=== PATIENT | female | born 1970 | race Caucasian/White ===

== ENCOUNTER → 2017-04-05 | Outpatient (CLI) | payer OTHER | END | disposition home or self-care (01) | LOC: US 12:30 | DX: D25.2 Subserosal leiomyoma of uterus (principal) ==

== ENCOUNTER → 2017-04-19 | Outpatient (CLI) | payer OTHER | END | disposition home or self-care (01) | LOC: MAMMO 04-05 12:33 | DX: Z12.31 Encounter for screening mammogram for malignant neoplasm of breast (principal) ==

== ENCOUNTER 2019-01-01 08:38 | Emergency (ER) | payer OTHER ==
[~2019-01-01] VITALS: Ht 160 cm; Wt 68.0 kg
--- NOTE | ~2019-01-01 | EKG ---
[place], [place] ELECTROCARDIOGRAM REPORT NAME: VILMA MORENO UNIT #: [id number] ROOM: DOCTOR: EPIPHANY DRAFT REPORT BIRTHDATE: [birth year] [facility] Test Date: 2019-01-01 Test Time: 09:06:04 Pat Name: VILMA MORENO Department: Room: Gender: F [employer]: : 1970 Requested By: MADONNA EDWARDS Order Number: [id number] Reading MD: Christ Grimes MD Measurements Intervals [place] Rate: 75 P: 71 VA: 130 QRS: 67 QRSD: 83 T: 20 QT: 393 QTc: 439 Interpretive Statements Sinus rhythm Nonspecific ST T changes Electronically Signed On 01-03-2019 6:22:10 PDT by Christ Grimes MD CM:EKGRPT:ELECTROCARDIOGRAM REPORT [id number] MADONNA CARLOS DRAFT REPORT MADONNA EDWARDS M.D.
[2019-01-01 09:32] LABS: BASO % 0.2 % (0.0-1.0); EOS % 0.3 % (1.0-4.0); HEMATOCRIT 48.2 % (37.0-47.0); HEMOGLOBIN 16.2 g/dl (12.0-16.0); LYMPH # 0.5 10*3/uL (1.3-4.4); LYMPH % 4.2 % (27.0-41.0); MEAN CELL VOLUME 96.8 fl (81.0-99.0); MEAN CORPUSCULAR HGB 32.5 pg (27.0-31.0); MEAN CORPUSCULAR HGB CONC 33.6 g/dl (33.0-37.0); MEAN PLATELET VOLUME 9.6 fl (9.6-12.3); MONO # 0.9 10*3/uL (0.1-1.0); MONO % 6.9 % (3.0-9.0); NEUT # 11.3 10*3/uL (2.3-7.9); NEUT % 88.1 % (47.0-73.0); PLATELET COUNT AUTOMATED 175 10*3/uL (130-400); RED BLOOD COUNT 4.98 10*6/uL (4.10-5.10); RED CELL DISTRI WIDTH 12.5 % (0-14.5); WHITE BLOOD COUNT 12.9 10*3/uL (4.8-10.8)
[2019-01-01 09:48] LABS: ALBUMIN 4.3 gm/dl (3.1-4.5); ALKALINE PHOSPHATASE 67 U/L (45-117); BUN 7 mg/dl (7-24); CHLORIDE 107 mmol/L (98-107); CREATININE 0.62 mg/dL (0.55-1.02); POTASSIUM 4.1 mmol/L (3.5-5.1); SGOT/AST 15 IU/L (3-35); SGPT/ALT 18 U/L (12-78); SODIUM 137 mmol/L (136-145); TOTAL PROTEIN 7.8 gm/dL (6.4-8.2)
[2019-01-01] MEDS ORDERED: ZITHROMAX250 MG PO (10:38)
[2019-01-01] MEDS ORDERED: PREDNISONE20 M1 PO (10:40)
== END 2019-01-01 11:05 | disposition home or self-care (01) ==
LOC: ED 08:38
PROVIDERS: Emergency Medicine
DX: J44.1 Chronic obstructive pulmonary disease with (acute) exacerbation (principal); F17.200 Nicotine dependence, unspecified, uncomplicated

== ENCOUNTER → 2019-10-16 | Outpatient (CLI) | payer OTHER ==
[~2019-10-16] MED LIST: PREDNISONE20 M1 PO; ZITHROMAX250 MG PO
== END | disposition home or self-care (01) ==
LOC: RAD 15:25
DX: J43.9 Emphysema, unspecified (principal); M89.8X1 Other specified disorders of bone, shoulder; Z72.0 Tobacco use

== ENCOUNTER → 2021-08-23 | Outpatient (CLI) | payer OTHER | END | disposition home or self-care (01) | LOC: MAMMO 07:11 | PROVIDERS: ATTEND Nurse Practitioner Family | DX: Z12.31 Encounter for screening mammogram for malignant neoplasm of breast (principal) ==